=== PATIENT | female | born 1945 | race Caucasian/White ===

== ENCOUNTER 2017-11-14 13:05 | Outpatient (RCR) | payer MEDICARE, MEDICAID, SELFPAY ==
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
--- NOTE | 2017-11-21 12:53 | NT_ITS ---
11/21/17 No show for today's scheduled aquatic therapy session. Sabrina Tate, PRINCIPAL JAVA SOFTWARE ENGINEER
--- NOTE | 2017-11-23 08:43 | NT_ITS ---
11/23/17 No show for today's scheduled aquatic therapy session. Sabrina Tate, RETAIL SALES ASSISTANT
== END 2017-12-01 23:59 | disposition home or self-care (01) ==
LOC: PT 13:05
PROVIDERS: PCP Nurse Practitioner Family; Referring Provider Nurse Practitioner Family; Visit Provider Nurse Practitioner Family
DX: R29.898 Other symptoms and signs involving the musculoskeletal system (principal); R26.89 Other abnormalities of gait and mobility; M79.7 Fibromyalgia; M62.81 Muscle weakness (generalized); M54.9 Dorsalgia, unspecified
CPT/HCPCS: 97112; 97162; G8978

== ENCOUNTER 2017-12-14 17:02 | Outpatient (REF) | payer MEDICARE, MEDICAID, SELFPAY ==
[2017-12-18 00:22] LABS: Codeine Negative ng/mL (Cutoff: 25); Dihydrocodeine Negative ng/mL (Cutoff: 25); Hydrocodone Negative ng/mL (Cutoff: 25); Hydromorphone Negative ng/mL (Cutoff: 25); Morphine Negative ng/mL (Cutoff: 25); Naloxone Negative ng/mL (Cutoff: 25); Norhydrocodone Negative ng/mL (Cutoff: 25); Noroxycodone 271 ng/mL (Cutoff: 25); Noroxymorphone Negative ng/mL (Cutoff: 25); Opiates Interpretation Positive.
[2017-12-19 12:13] LABS: O-desmethyltramadol 655 ng/mL (Cutoff:25); Tramadol 3963 ng/mL (Cutoff:25)
== END 2017-12-14 17:22 ==
LOC: NCHCN 17:02
PROVIDERS: PCP Nurse Practitioner Family; Referring Provider Nurse Practitioner Family; Visit Provider Nurse Practitioner Family
DX: M25.552 Pain in left hip (principal); G89.21 Chronic pain due to trauma; Z79.891 Long term (current) use of opiate analgesic
CPT/HCPCS: 80361; 80373

== ENCOUNTER 2018-01-11 15:07 | Outpatient (REF) | payer MEDICARE, MEDICAID, SELFPAY ==
[2018-01-16 07:42] LABS: O-desmethyltramadol 732 ng/mL (Cutoff:25); Tramadol 2654 ng/mL (Cutoff:25)
== END 2018-01-11 15:27 ==
LOC: NCHCN 15:07
PROVIDERS: PCP Nurse Practitioner Family; Visit Provider Nurse Practitioner Family
DX: M25.552 Pain in left hip (principal); G89.21 Chronic pain due to trauma; Z79.899 Other long term (current) drug therapy
CPT/HCPCS: 80373

== ENCOUNTER 2018-02-09 14:54 | Outpatient (REF) | payer MEDICARE, MEDICAID, SELFPAY ==
[2018-02-09 22:16] LABS: Anion Gap 5.9 mmol/L (3-11); BUN 16 mg/dL (7-18); CO2 30.1 mmol/L (21.0-32.0); CREATININE 1.18 mg/dL (0.55-1.02); Calcium 8.4 mg/dL (8.5-10.1); Chloride 97 mmol/L (98-107); Estimated GFR 45.15 (mL/min/1.73m2); Glucose 86 mg/dL (70-100); Sodium 133 mmol/L (136-145); TSH (W/Ref FT4) 1.27 uIU/mL (0.358-3.74); Vitamin B12 476 pg/mL (193-986)
[2018-02-13 09:45] LABS: O-desmethyltramadol 671 ng/mL (Cutoff:25); Tramadol 2395 ng/mL (Cutoff:25)
== END 2018-02-09 15:14 ==
LOC: NCHCN 14:54
PROVIDERS: PCP Nurse Practitioner Family; Visit Provider Nurse Practitioner Family
DX: M25.552 Pain in left hip (principal); G89.21 Chronic pain due to trauma; Z79.899 Other long term (current) drug therapy; I27.20 Pulmonary hypertension, unspecified; E03.9 Hypothyroidism, unspecified; I50.9 Heart failure, unspecified; R60.0 Localized edema; G47.33 Obstructive sleep apnea (adult) (pediatric); E53.8 Deficiency of other specified B group vitamins; E87.1 Hypo-osmolality and hyponatremia
CPT/HCPCS: 80048; 80373; 82607; 84443

== ENCOUNTER 2018-02-21 00:56 | Outpatient (CLI) | payer MEDICARE, MEDICAID, SELFPAY ==
--- NOTE | 2018-02-21 13:18 | DI.US_ITS ---
SYMPTOM/DIAGNOSIS: ACUTE LEG PAIN, M79.906 DUPLEX VENOUS ULTRASOUND LEFT LOWER EXTREMITY: Duplex evaluation of the deep venous system of the left lower extremity was performed according to the usual protocol. Note is made of a 5.8 by 2.9 by 1.9 cm. in diameter, septated fluid collection with somewhat thick septations in the upper medial thigh. The findings are indeterminate but this could represent an old hematoma. Please correlate clinically. There is no evidence of deep venous thrombosis. There is normal doppler evaluation of the deep venous system. CONCLUSION: No evidence of DVT. Approximately 6 by 3 by 2 cm. in diameter septated fluid collection noted in the upper medial thigh.
== END 2018-02-21 01:16 ==
PROVIDERS: PCP Nurse Practitioner Family; Visit Provider Nurse Practitioner Family
DX: M79.652 Pain in left thigh (principal); R22.42 Localized swelling, mass and lump, left lower limb
CPT/HCPCS: 93971

== ENCOUNTER 2018-03-29 19:16 | Emergency (ER) | payer MEDICARE, SELFPAY ==
[2018-03-29] VITALS (21 sets, daily range): BP systolic 45–122; BP diastolic 17–80; PULSE 61–185; RESP 15–30; TEMP 36–36.2; O2SAT 87–100
[2018-03-29] MEDS: Lactated Ringers 1,000 ML 1000 ML IV (19:25)
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
[2018-03-29 19:44] LABS: Abs Immature Grans 0.11 k/cumm (0.0-0.09); Absolute Basophil Count 0.02 k/cumm (0.0-0.2); Absolute Eosinophil Count 0.03 k/cumm (0.0-0.7); Absolute Lymphocyte Count 1.66 k/cumm (1.2-3.4); Absolute Monocyte Count 0.55 k/cumm (0.11-0.7); Absolute Neutrophil Count 7.06 k/cumm (1.2-6.7); Basophils % 0.2; Eosinophils % 0.3; HCT 32.4 % (36.0-46.0); HGB 10.6 g/dL (12.0-15.5); Immature Grans % 1.2; Lymphocytes % 17.6; Mean Corp. HGB Concentration 32.7 g/dL (32.0-36.0); Mean Corpuscular Hemoglobin 29.7 pg (27.0-33.0); Mean Corpuscular Volume 90.8 fL (80-95); Mean Platelet Volume 8.8 fL (8.0-11.0); Monocytes % 5.8; Neutrophils % 74.9; Platelet Count 315 x1000/uL (130-400); RBC 3.57 m/cumm (4.00-5.20); RBC Distribution Width 15.4 % (11.7-14.6); White Blood Cell Count 9.43 k/cumm (4.4-10.8)
[2018-03-29] MEDS: fentaNYL 100 MCG/2 ML VIAL 50 MCG IVP (19:45)
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
[2018-03-29] MEDS: Tetanus & Diphtheria Tox,ADULT 0.5 ML VIAL IM (19:55)
[2018-03-29 19:58] LABS: ALT 240 U/L (12-78); AST 569 U/L (15-37); Albumin 2.7 g/dL (3.4-5.0); Alkaline Phosphatase 113 U/L (46-116); Anion Gap 11.4 mmol/L (3-11); BUN 23 mg/dL (7-18); Bilirubin, Total 0.3 mg/dL (0.2-1.0); CO2 21.6 mmol/L (21.0-32.0); CREATININE 1.22 mg/dL (0.55-1.02); Calcium 8.2 mg/dL (8.5-10.1); Chloride 98 mmol/L (98-107); ETHANOL BLOOD 138.3 mg/dL (<3); Estimated GFR 43.45 (mL/min/1.73m2); Glucose 115 mg/dL (70-100); Magnesium 2.4 mg/dL (1.8-2.4); Potassium 4.1 mmol/L (3.5-5.1); Sodium 131 mmol/L (136-145); Total Protein 5.9 g/dL (6.4-8.2)
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
[2018-03-29 20:55] LABS: Bilirubin Negative (Negative); Blood Trace-intact (Negative); Clarity Clear; Glucose Negative (Negative); Ketones Negative (Negative); Leukocyte Esterase Negative (Negative); Nitrite Negative (Negative); Specific Gravity <= 1.005 (1.005-1.025); Urobilinogen 0.2 EU/dL (Up TO 0.2); pH 5.5 (5-8)
[2018-03-29 21:01] LABS: INR 1.3 (1.0-3.5); PTT Activated 25.9 sec (21.0-31.4); Prothrombin Time 13.1 sec (9.3-11.0)
[2018-03-29 21:03] LABS: *AMPHETAMINES SCREEN URINE Negative (Negative); *BARBITURATES SCREEN URINE Negative (Negative); *BENZODIAZEPINES SCREEN URINE Negative (Negative); Bacteria Few HPF (Negative); C & S Indicated? No; Cannabinoids THC Negative (Negative); Casts Negative LPF (Negative); Cocaine Screen,Urine Negative (Negative); Crystals Negative HPF (Negative); Epithelial Cells Negative HPF (Negative); METHADONE URINE SCREEN Negative (Negative); Mucus Negative (Negative); OPIATES URINE SCREEN Negative (Negative); Other Cells Rare Renal (Negative); RBC 0-2 (0-2); WBC Negative HPF (0-5)
[2018-03-29 21:08] LABS: Tricyclic Antidepressants Negative (Negative)
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
[2018-03-29 21:39] LABS: Troponin I 0.06 ng/mL (0.00-0.06)
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
[2018-04-04 11:15] LABS: Kit/Specimen SENT
== END 2018-03-29 21:15 | disposition short-term general hospital (02) ==
PROVIDERS: Emergency Provider Emergency Medicine; PCP Nurse Practitioner Family
DX: S22.42XA Multiple fractures of ribs, left side, initial encounter for closed fracture (principal); S32.82XA Multiple fractures of pelvis without disruption of pelvic ring, initial encounter for closed fracture; S32.110A Nondisplaced Zone I fracture of sacrum, initial encounter for closed fracture; R94.31 Abnormal electrocardiogram [ECG] [EKG]; S81.812A Laceration without foreign body, left lower leg, initial encounter; S30.810A Abrasion of lower back and pelvis, initial encounter; M25.531 Pain in right wrist; V43.52XA Car driver injured in collision with other type car in traffic accident, initial encounter; I10 Essential (primary) hypertension
CPT/HCPCS: 36415; 36430; 51702; 74177; 80053; 80307; 86850; 86900; 86901; 86920; 90471; 93005; 96361; 96365; 96375; 99291; 99292; 70450; 71260; 72125; 80320; 81003; 81015; 83735; 84484; 85025; 85610; 85730; 93010; P9016